=== PATIENT | male | born 1980 | race Caucasian/White ===

== ENCOUNTER 2019-10-03 10:39 | Emergency (ER) | payer SELFPAY ==
--- NOTE | ~2019-10-03 | XR_ITS ---
EXAMINATION: XR finger 1st LT min 2V DATE: 10/03/2019 11:08 INDICATION: Left thumb injury. TECHNIQUE: 3 views of left thumb were obtained. COMPARISON: None. FINDINGS: There is an open comminuted fracture of tuft of first distal phalanx with soft tissue defec t. 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 IMPRESSION: 1. Open comminuted fracture of tuft of first distal phalanx. Reviewed, dictated and finalized at location A.
[2019-10-03 10:50] VITALS: BP 151/90; PULSE 93; RESP 18; TEMP 36.8; O2SAT 98
--- NOTE | 2019-10-03 11:17 | PC.NURSE ---
Digital block performed by ELLIOT sanders to control pain. Patient tolerated well.
--- NOTE | 2019-10-03 11:18 | ED.WOUNDLAC ---
HPI - Wound/Laceration General Chief Complaint: Wound/Laceration <Serjio Caballero PA-C - Last Filed: 10/03/19 16:00> Stated Complaint: thumb lC <Serjio Caballero PA-C - Last Filed: 10/03/19 16:00> Time Seen by Provider: 10/03/19 10:41 <THIERNO Mancuso Last Filed: 10/03/19 16:00> Source: patient <THIERNO Mancuso Last Filed: 10/03/19 16:00> Mode of arrival: ambulatory <Serjio Caballero PA-C - Last Filed: 10/03/19 16:00> Limitations: no limitations <THIERNO Mancuso Last Filed: 10/03/19 16:00> History of Present Illness HPI narrative: Patient is a 38-year-old male who presents to emergency department for evaluation of amputation of the distal phalanx left thumb patient was working on a gate when the gate closed causing the amputation. Patient notes his tetanus is not up-to-date. Patient notes moderate aching pain worse with activity and movement. Injury occurred just prior to arrival <Serjio Caballero PA-C - Last Filed: 10/03/19 16:00> Related Data Allergies/Adverse Reactions: Allergies Allergy/AdvReac Type Severity Reaction Status Date / Time No Known Allergies Allergy Verified 10/03/19 10:57 <THIERNO Mancuso Last Filed: 10/03/19 16:00> Review of Systems Review of Systems: All systems reviewed & are unremarkable except as noted in HPI and below <Serjio Caballero PA-C - Last Filed: 10/03/19 16:00> PMFSH Surgical History Surgical History: Surgical History (Updated 10/03/19 @ 11:19 by Serjoi Caballero PA-C) History of orthopedic surgery <THIERNO Mancuso Last Filed: 10/03/19 16:00> Social History Social History: Social History Gender identity (if verbalized by the patient): Male <THIERNO Mancuso Last Filed: 10/03/19 16:00> Exam Narrative: Exam Narrative: GENERAL: Well-appearing, well-nourished, and in no acute distress. HEAD: Normocephalic, atraumatic. EYES: PERRLA and EOMI. ENT: Nares clear, no rhinorrhea or epistaxis. Mucous membranes moist. CHEST: Clear to auscultation. No respiratory distress. No wheezes rales or rhonchi HEART: Regular rate and rhythm. No murmur heard.. EXTREMITIES: Normal range of motion. No edema. SKIN: Warm, dry, no rash. Patient with amputation of the distal phalanx left thumb small portion of the proximal nail fold intact NEURO: No focal deficits. Alert and oriented x3. Neurovascularly intact PSYCH: Normal mood and affect. <THIERNO Mancuso Last Filed: 10/03/19 16:00> Course Course Emergency Course: pt in the room in no distress aware of case findings treatment plan and diagnosis <THIERNO Mancuso Last Filed: 10/03/19 16:00> Consultations Consultation #1: spoke with hand surgeon who will repair wound in clinic today <THIERNO Mancuso Last Filed: 10/03/19 16:00> Date: 10/03/19 <THIERNO Mancuso Last Filed: 10/03/19 16:00> Time: 12:03 <THIERNO Mancuso Filed: 10/03/19 16:00> Vital Signs Vital signs: Vital Signs Temperature 36.8 C 10/03/19 10:50 Pulse Rate 93 10/03/19 10:50 Respiratory Rate 18 10/03/19 10:50 Blood Pressure 151/90 H 10/03/19 10:50 Pulse Oximetry 98 10/03/19 10:50 Temperature 36.8 C 10/03/19 10:50 Pulse Rate 67 10/03/19 12:29 Respiratory Rate 18 10/03/19 12:29 Blood Pressure 130/82 10/03/19 12:29 Pulse Oximetry 99 10/03/19 12:29 <THIERNO Mancuso Filed: 10/03/19 16:00> Vital Signs Temperature 36.8 C 10/03/19 10:50 Pulse Rate 93 10/03/19 10:50 Respiratory Rate 18 10/03/19 10:50 Blood Pressure 151/90 H 10/03/19 10:50 Pulse Oximetry 98 10/03/19 10:50 Temperature 36.8 C 10/03/19 10:50 Pulse Rate 67 10/03/19 12:29 Respiratory Rate 18 10/03/19 12:29 Blood Pressure 130/82 10/03/19 12:29 Pulse Oximetry 99 10/03/19 12:
[2019-10-03] MEDS: ceFAZolin 2 GM/D5W 50 ML 2 GM/50 ML BAG IVPB (11:20)
[2019-10-03] MEDS: TETANUS,DIPHTHERIA,AC PERTUSSIS ADULT (0.5 ML) BOOSTRIX IM (11:20)
[2019-10-03] MEDS: IBUPROFEN IV 800 MG/200 ML 800 MG/200 ML BAG 400 MG IVPB (12:03)
[2019-10-03 12:29] VITALS: BP 130/82; PULSE 67; RESP 18; O2SAT 99
[2019-10-03] MEDS: MORPHINE SULFATE 4 MG/ML INJ IV PUSH (12:32)
[2019-10-03] MEDS: MIDAZOLAM HCL 2 MG/2 ML VIAL IV PUSH (14:55)
--- NOTE | 2019-10-04 10:43 | P.OP_ITS ---
Procedure Note - Detailed Date of procedure: 10/04/19 Pre-op diagnosis: thumb lC Avulsion laceration of left thumb with nail involvement. Post-op diagnosis: same Procedure performed: Revision of amputation of left thumb with neuro vascular advancement flap, 12 sq cm. 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 Some part of the gate fell on to his thumb and dislodged the nail plate and avulsed soft tissue encompassing the distal 1/2 of the nail bed and most of the pad of the thumb. I was called to the emergency room to see if I would be interested take care of him. . I reviewed his x-ray which showed no fracture. I examined his wound. Unfortunately this was an unfavorable amputation of the pad beginning proximal volar and extending dorsal distal . I explained the various options available for reconstruction of this injury. These included a shortening amputation with utilization of local soft tissue for wound closure, a cross-finger flap of various sorts, a homo digital neurovascular flap, or possibly a neurovascular great toe pulp microvascular procedure. In some cases there would be the morbidly of a 2nd operative site. I made clear to him that the more complicated of these would require the expertise of someone at [facility]. I tried to help him understand that some of these would require longer healing time but would give him length. If he were to choose those he would need to travel to the emergency room at [facility] this evening and that his surgery might actually take place another day. He decided after some thought that he would prefer to have the procedure this evening at [facility] and was willing to accept shortening the distal phalanx, loss of his nail bed and nail, preservation of interphalangeal flexion and hopefully sensate, tough tissue at the end of the stump. The procedure was carried out in the emergency room in his private cubical on the [facility]. He had received a tetanus shot. He had received IV Ancef. The digit was blocked with 1% lidocaine with epinephrine. The entire hand was prepped with Shur-Clens. The nail fold was split and all nail bed tissue remove d sharply. The dorsal nail fold was not otherwise disturb. The distal phalanx was rongeured back roughly to the level of the nail fold. Both extensor and flexor tendons remained inserted. The metaphysis of the distal phalanx was released from the overlying soft tissue radially and ulnarly preserving the collateral ligaments. Useful tissue remained on the ulnar side. A partial Johnny's flap was raised along the radial side of the thumb with a back cut at the metacarpal phalangeal flexion crease. This was mobilized sufficiently to close the pad defect. This did not cause undesireable flexion of IP or MP joints.Closure was done with 4-0 Prolene suture. A bulky bandage was applied. He was discharged to follow up in 4 days. He was given prescriptions for pain medicine and antibiotics. Surgeon: Jassi Kaur MD
== END 2019-10-03 16:16 | disposition home or self-care (01) ==
PROVIDERS: Emergency Provider Emergency Medicine
DX: S62.522B Displaced fracture of distal phalanx of left thumb, initial encounter for open fracture (principal); Z23 Encounter for immunization; W23.0XXA Caught, crushed, jammed, or pinched between moving objects, initial encounter
CPT/HCPCS: 26952; 73140; 90471; 90715; 96365; 96367; 96375; 99284; J0131; J0690; J1741; J2250; J2270

== ENCOUNTER 2024-07-07 14:38 | Emergency (ER) | payer SELFPAY ==
[2024-07-07 14:44] VITALS: BP 131/95; PULSE 97; RESP 20; TEMP 37.6; O2SAT 97
--- NOTE | 2024-07-07 14:47 | ED_ITS ---
HPI - Ear Problem General Chief complaint: Ear Stated complaint: left ear Time Seen by Provider: 07/07/24 14:50 Source: patient, RN notes reviewed and old records reviewed Mode of arrival: ambulatory Limitations: no limitations History of Present Illness HPI Narrative: 43 year old male who presents to [facility] care with complaints of left ear pain starting yesterday at around 1400 with patient reporting that he had purulent drainage coming out of his left ear by 1999. Patient reports that about 2weeks ago he had URI symptoms and took Advil cold and sinus with symptoms clearing up by last Monday. Patient reports that he felt well all week till his ear pain began yesterday.Patient reports that he did a telehealth visit and received ear drops of Ofloxacin which he started this morning with little improvement in his discomfort. Patient reports that he has been taking Ibuprofen for his discomfort. MD Complaint: ear pain Location: left ear Duration: constant Severity: moderate Discharge from ear: Reports yes - purulent Associated symptoms ear: decreased hearing and other (pain left ear) Treatment prior to arrival: eardrops and oral analgesic Related Data Allergies Allergy/AdvReac Type Severity Reaction Status Date / Time No Known Allergies Allergy Verified 10/03/19 10:57 Review of Systems Review of Systems: CONSTITUTIONAL: Reports malaise,no chills, sweats, or known fever. EYES: Denies visual changes, redness, or discharge. ENT: Reports rhinorrhea, congestion, no sinus pain, left otalgia and no sore throat. CARDIOVASCULAR: Denies chest pain, palpitations, or edema. RESPIRATORY: Reports no cough.? Denies dyspnea. GASTROINTESTINAL: Denies abdominal pain, nausea, vomiting, diarrhea SKIN: Denies rash or itching. MUSCULOSKELETAL: Denies myalgia. NEUROLOGIC: Denies headache. 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 There is no relevant family history pertinent to the presenting complaint Exam Narrative: GENERAL: Well-appearing, well-nourished, and in some acute distress related to ear pain.. HEAD: Normocephalic EYES: PERRLA, conjunctivae clear ENT: Nares clear, turbinates edematous and erythematous, clear discharge. Mucous membranes moist.Left TM red with TM perforated, purulent drainage from left ear, Right TM pearly [place] with dull light reflex bilaterally; no tragal tenderness. Oropharynx erythematous without lesions. Tonsils not enlarged and without exudate, no drooling, no hoarseness, no trismus, uvula midline. PND NECK: Supple. No lymphadenopathy CHEST: Clear to auscultation, breath sounds equal. No wheezing, rhonchi, rales, or stridor. No respiratory distress, speaks in full sentences.no cough noted,SAO2 97% on room air HEART: Regular rate and rhythm. No murmur heard. SKIN: Warm, dry, no rash. NEURO: Alert and oriented x3. PSYCH: Normal mood and affect Course Course Emergency Course: Patient is aware of diagnosis, understands and agrees to treatment plan.? Anticipatory guidance given.? Patient agrees to follow-up as directed and is aware of reasons to seek care at the emergency department. Portions of this record may have been created with voice recognition software Level of Care: Express Care Visit Vital Signs Vital signs: Reviewed Medical Decision Making Differential Diagnosis Differential Diagnosis: left ear pain, otitis media, otitis externa, perforation of left TM Medical Records Medical records reviewed: Yes I reviewed the external patient's medical records. Critical Care Time Critical Care Time Critical Care Time: No Discharge Plan Discharge Clinical Impression: Acute otitis media of left ear with perforation Patient Disposition: Home, Self-Care Condition: Stable Instructions: Antibiotic Form, Ear Infection (GEN) Additional Instructions: Increase fluids especially juices and water Myrv-xcf-sauhggt cough and cold medicine of your choice for your symptoms Zyrtec Claritin or Jazmyne daily Arthritis Strength Tylenol 1 tablet every 8 hours routinely for the next 2 days for pain control Also take ibuprofen 600 mg every 6 hours as needed for pain heat to the face 20-30 minutes 4-6 times a day for pain Salt water gargles, throat lozenges or throat sprays as desired Antibiotic orally as directed--finished the medication Continue to use your ear drops as prescribed Follow-up with your PCP in 5-7 days mood referral for ENT consult If your symptoms persist, change or worsen significantly before you can contact your personal physician then please, without delay, go to the emergency department for further evaluation. Follow-up with PCP in 7-10 days or sooner if needed Follow up with PCP soon in regards to your blood pressure which is elevated above threshold for referral. Blood pressure above 120/80 may indicate pre- hypertension. 131/95 Patient Language: Icelandic Prescriptions: New amoxicillin-pot clavulanate 875-125 mg tablet 1 tablet PO Q12H Qty: 20 0RF Rx Instructions: Take with food recommend probiotic or eating activa yogurt while on this medication for Follow-up/Referrals: PHYSICIAN,SENIOR MARKETING ANALYST [Primary Care Provider] - Time of Disposition: 15:01 Quality [place] Coma Scale Eyes: Open Verbal: Oriented and Alert Motor: Follows Commands [place] Coma Total Score: 15
== END 2024-07-07 15:06 | disposition home or self-care (01) ==
PROVIDERS: Emergency Provider Registered Nurse
DX: H66.92 Otitis media, unspecified, left ear (principal); H72.92 Unspecified perforation of tympanic membrane, left ear
CPT/HCPCS: 99213; G0463